=== PATIENT | male | born 2000 | race American Indian/Alaskan Native ===

== ENCOUNTER 2018-12-16 22:14 | Emergency (ER) | payer OTHER ==
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
[2018-12-17] MEDS ORDERED: PERCOCET 5/325 PO STA (01:39)
[2018-12-17 02:07] VITALS: BP 115/68
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
== END 2018-12-17 03:04 | disposition home or self-care (01) ==
LOC: ED 22:14
DX: M25.512 Pain in left shoulder (principal); M54.2 Cervicalgia; V89.2XXA Person injured in unspecified motor-vehicle accident, traffic, initial encounter; Y93.89 Activity, other specified; Y92.488 Other paved roadways as the place of occurrence of the external cause; Y99.8 Other external cause status
CPT/HCPCS: 72040; 99283